=== PATIENT | female | born 1995 | race Caucasian/White ===

== ENCOUNTER 2020-08-02 19:14 | Emergency (ER) | payer SELFPAY ==
[2020-08-02] MEDS ORDERED: METOCLOPRAMIDE HCL INJ/PF 10 MG/2 ML SDV IV ONE ×2 (20:15→20:53)
[2020-08-02] MEDS ORDERED: NORMAL SALINE 1000 ML 1,000 ML IV ONE (20:15)
[2020-08-02] MEDS ORDERED: DIPHENHYDRAMINE HCL 50 MG/ML VIAL IV ONE ×2 (20:15→20:53)
--- NOTE | 2020-08-02 20:18 | ER Document Report ---
ED Medical Screen (RME) - General Chief Complaint: Headache Stated Complaint: HEADACHE Time Seen by Provider: 08/02/20 20:11 - HPI Notes: 08/02/20 20:16 24-year-old female with past medical history pertinent for migraines and is c urrently 14 weeks to the emergency department with complaints of a left-sided headache that is been ongoing for the past 24 hours. She states that she has a little bit of nausea with it and some slight floaters in the left eye. She states that she took Tylenol but it is not really helping. Her last dose of Tylenol was at 11 AM this morning. She denies any abdominal pain or vaginal bleeding. She states she is currently waiting for referral to [facility]. She did have a confirmed IUP on ultrasound. I performed a brief medical screening exam on the patient determined that the patient needs further evaluation and management by main side provider. I have placed initial orders to help expedite care. Physical Exam - Vital signs Vitals: Temp Pulse Resp BP Pulse Ox 97.9 F 65 20 127/63 H 100 08/02/20 19:33 08/02/20 19:33 08/02/20 19:33 08/02/20 19:33 08/02/20 19:33 Course - Vital Signs Vital signs: Temp Pulse Resp BP Pulse Ox 97.9 F 65 20 127/63 H 100 08/02/20 19:33 08/02/20 19:33 08/02/20 19:33 08/02/20 19:33 08/02/20 19:33
[2020-08-02] MEDS ORDERED: RINGERS SOLUTION,LACTATED 1,000 ML IV ONE (20:53)
--- NOTE | 2020-08-02 20:54 | ER Document Report ---
ED General - General Chief Complaint: Headache Stated Complaint: HEADACHE Time Seen by Provider: 08/02/20 20:11 Primary Care Provider: PEDRO HEBERT PA-C [Primary Care Provider] - Follow up as needed - HPI Notes: 24-year-old female presents with headache. Patient states that she has had a left-sided migraine for over 24 hours. She has a history of migraines, experiences them intermittently. She states is a typical headache for her. She denies photosensitivity or blurred vision. She states that intermittently she will have a sharp pain behind her left eye which lasts for less than a second. She has some nausea, no vomiting or abdominal pain. She has taken Tylenol which will dull the pain but has not totally relieved it. She is 14 weeks . - Related Data Allergies/Adverse Reactions: amoxicillin [From Augmentin] Allergy (Verified 08/02/20 21:41) clavulanic acid [From Augmentin] Allergy (Verified 08/02/20 21:41) latex Allergy (Verified 08/02/20 21:41) Penicillins Allergy (Verified 08/02/20 21:41) Past Medical History - General Information source: Patient - Social History Smoking Status: Never Smoker Family History: Reviewed & Not Pertinent Review of Systems - Review of Systems Constitutional: denies: Chills, Fever EENT: denies: Blurred vision Cardiovascular: No symptoms reported Respiratory: No symptoms reported Gastrointestinal: See HPI Genitourinary: denies: Dysuria Female Genitourinary: denies: Vaginal bleeding Musculoskeletal: No symptoms reported Skin: No symptoms reported Neurological/Psychological: Headaches. denies: Weakness, Numbness Physical Exam - Vital signs Vitals: Temp Pulse Resp BP Pulse Ox 97.9 F 65 20 127/63 H 100 08/02/20 19:33 08/02/20 19:33 08/02/20 19:33 08/02/20 19:33 08/02/20 19:33 - General General appearance: Appears well, Alert In distress: None - HEENT Head: Normocephalic, Atraumatic Extraocular movements intact: Yes Pupils: PERRL Nerve palsy: No Visual santos normal: Yes Neck: Supple - Respiratory Breath sounds: Normal - Cardiovascular Rhythm: Regular Heart sounds: Normal auscultation - Abdominal Tenderness: Nontender - Extremities General upper extremity: Normal ROM General lower extremity: Normal ROM - Neurological Neuro grossly intact: Yes Cognition: Normal Orientation: AAOx4 Speech: Normal Cranial nerves: Normal Motor strength normal: LUE, RUE, LLE, RLE Sensory: Normal - Psychological Associated symptoms: Normal affect - Skin Skin Temperature: Warm Course - Re-evaluation Re-evalutation: 24-year-old female 14 weeks gestation here with left-sided migraine, typical per her description. She is hemodynamically stable, afebrile. She has no gross focal neuro deficits. Suspect this is a typical migraine for her. Less likely acute intracranial pathology given her reassuring neuro exam. Will treat symptomatically with Reglan and Benadryl, also give fluids. Check urine sample to ensure that occult UTI is not present. 08/02/20 22:30 Urine does exhibit bacteriuria, given that she is will treat, sent for culture 08/02/20 23:42 Patient reports she is feeling much better. I updated her on urine results. She reports she is anaphylactic to penicillin, therefore will prescribe Macrobid, she is in her second trimester at this point. Return precautions given, stable at time of discharge. - Vital Signs Vital signs: Temp Pulse Resp BP Pulse Ox 98.1 F 63 20 109/53 L 100 08/02/20 23:08 08/02/20 23:08 08/02/20 19:33 08/02/20 23:08 08/02/20 23:08 Discharge - Discharge Clinical Impression: Asymptomatic bacteriuria during in second trimester Migraine headache Qualifiers: Migraine type: unspecified Status migrainosus presence: without status andrew rainosus Intractability: not intractable Qualified Code(s): G43.909 - Migraine, unspecified, not intractable, without status migrainosus Disposition: HOME, SELF-CARE Additional Instructions: As discussed there was some evidence of bacteria in your urine, please take Macrobid as prescribed. You may be called if antibiotic needs to be changed based on culture results. He may continue to use Reglan for nausea/headache. Be sure to drink plenty of fluids. Return to the emergency department for any concerning worsening symptoms. Prescriptions: Nitrofurantoin Monohyd/M-Cryst [Macrobid 100 mg Capsule] 100 mg PO BID 5 Days #10 cap Metoclopramide HCl [Reglan 10 mg Tablet] 10 mg PO Q6H PRN #15 tablet PRN Reason: Referrals: PEDRO HEBERT PA-C [Primary Care Provider] - Follow up as needed
[2020-08-02 21:59] LABS: APPEARANCE,URINE CLEAR; BILIRUBIN,URINE NEGATIVE (NEGATIVE); COLOR,URINE STRAW; GLUCOSE, URINE NEGATIVE (NEGATIVE); KETONES,URINE NEGATIVE (NEGATIVE); LEUKOCYTE ESTERASE,URINE NEGATIVE (NEGATIVE); NITRITE,URINE NEGATIVE (NEGATIVE); PROTEIN,URINE NEGATIVE (NEGATIVE); UROBILINOGEN,URINE NEGATIVE mg/dL (<2.0)
[2020-08-03 00:11] VITALS: BP 108/59
== END 2020-08-03 00:10 | disposition home or self-care (01) ==
LOC: ER 19:14
DX: O99.352 Diseases of the nervous system complicating pregnancy, second trimester (principal); G43.909 Migraine, unspecified, not intractable, without status migrainosus; O26.892 Other specified pregnancy related conditions, second trimester; R82.71 Bacteriuria; R11.0 Nausea; Z3A.14 14 weeks gestation of pregnancy; Z87.892 Personal history of anaphylaxis; Z88.0 Allergy status to penicillin; Z91.040 Latex allergy status
CPT/HCPCS: 99284; 96361; 96374; 96375; 87086; 81001; J1200; J2765; J7120